=== PATIENT | male | born 1965 | race Caucasian/White ===

== ENCOUNTER 2017-05-20 05:57 | Inpatient (IN) | payer MEDICARE, OTHER ==
[2017-05-20] VITALS (8 sets, daily range): BP systolic 116–142; BP diastolic 60–79; O2SAT 98
[~2017-05-20] VITALS: Ht 172.7 cm; Wt 92.1 kg
[~2017-05-20 05:57] MED LIST: /QUET25TA PO; ABIL1TAB11 PO; BUPIVACAINE LIPOSOME/PF 1.3% 20 ML VIAL (13.3MG/ML)(EXPAREL) As Ordered ONE; CIAL5TAB PO; CIPR-250 PO; CLON1TAB OR; CLON1TAB PO; EFFE150C PO; EFFE75CA75 PO; FERR325T3 PO; FLEC1.3D TD; GABA-282 PO; HORI1TAB4 PO; HYDR-3363 PO; HYDR12CA PO; LISI10TA4 PO; LISI30TA4 PO; LYRI150C PO; MELA3TAB49 PO; METF500T13 PO; MINI2CAP OR; MOBI15TA PO; OMEP40CA2 PO; PERC5TAB8 PO; PERC7.5T11 PO; PRAZ2CAP PO; PRIL40CA OR; PROZ40CA OR; RITA10TA PO; SIMV10TA2 OR; SIMV10TA2 PO; TRANEXAMIC ACID 100 MG/ML 10ML VIAL As Ordered ONE; TRAZ-136 PO; TRAZ50TA2 PO; VENL75CA PO; VITA500T PO; ceFAZolin 1GM INJ (J0690) As Ordered ONE; melatonin PO
[2017-05-20] MEDS ORDERED: TRANEXAMIC ACID INJection 1,000 MG in D5W 100 ML IV ONE (06:00)
[2017-05-20] MEDS ORDERED: LR 1,000 ML IV SCH ×2 (06:15→11:00)
[2017-05-20] MEDS ORDERED: MIDAZOLAM INJ 2 MG/2 ML VIAL (J2250) As Ordered ONE ×2 (06:56→08:13)
[2017-05-20] MEDS ORDERED: fentaNYL 100 MCG/2 ML INJECTION (J3010) As Ordered ONE ×3 (06:56→10:15)
[2017-05-20] MEDS ORDERED: MIDAZOLAM INJ 2 MG/2 ML VIAL (J2250) IV ONE (08:00)
[2017-05-20] MEDS ORDERED: fentaNYL 100 MCG/2 ML INJECTION (J3010) IV ONE (08:00)
[2017-05-20] MEDS ORDERED: LIDOCAINE 2% INJ 100 MG/5 ML SDV (FOR ANES.) As Ordered ONE (08:13)
[2017-05-20] MEDS ORDERED: PROPOFOL 200 MG/20 ML VIAL As Ordered ONE ×3 (08:13→10:00)
--- NOTE | 2017-05-20 08:18 | REP ---
PA and lateral chest: Comparison is 06/09/2014. The lung oliver are clear. The cardiac size is normal The tracy, mediastinum, and bony thorax are unremarkable. Impression: Negative PA and lateral chest. Cervical spine stabilization plate is again identified, unchanged. There is no interval change. Otherwise . Signed by Tonny Garcia MD 05/20/2017 08:10 A
[2017-05-20] MEDS ORDERED: ROPIvacaine 0.5% 30 ML INJECTION (J2795) ONE (08:59)
[2017-05-20] MEDS ORDERED: LIDOCAINE 1% MDV 20ML VIAL ONE (08:59)
[2017-05-20] MEDS ORDERED: dexameTHASONE 10 MG/1 ML VIAL PRES.FREE (J1100) ONE (08:59)
[2017-05-20] MEDS ORDERED: fentaNYL 100 MCG/2 ML INJECTION (J3010) IV PRN (11:00)
[2017-05-20] MEDS ORDERED: METOCLOPRAMIDE INJ 10MG/2ML VIAL (J2765) IV PRN (11:00)
[2017-05-20] MEDS ORDERED: ONDANSETRON 4MG/2ML VIAL (J2405) IV PRN ×2 (11:00→11:15)
[2017-05-20] MEDS ORDERED: MEPERIDINE INJ 25 MG/ML VIAL (J2175) IV PRN (11:00)
[2017-05-20] MEDS ORDERED: PERCOCET 5MG/325MG TAB PO PRN (11:00)
[2017-05-20] MEDS ORDERED: ACETAMINOPHEN TAB 650MG DOSE (2X325MG) PO PRN (11:15)
[2017-05-20] MEDS ORDERED: DEXTROSE 50% 50 ML SYRINGE IV PRN (11:15)
[2017-05-20] MEDS ORDERED: FLEET ENEMA PR PRN (11:15)
[2017-05-20] MEDS ORDERED: oxyCODONE 5MG TAB PO PRN (11:15)
[2017-05-20] MEDS ORDERED: GLUCAGON FOR INJ 1 MG VIAL (J1610) SC PRN (11:15)
[2017-05-20] MEDS ORDERED: GLUCOSE 4 GM CHEW TABLET PO PRN (11:15)
[2017-05-20] MEDS: HumaLOG INSULIN (NovoLOG) PER UNIT SC SCH ×2 (12:00→17:46)
[2017-05-20] MEDS: oxyCODONE 5MG TAB PO PRN ×2 (15:30→21:30)
[2017-05-20] MEDS: ceFAZolin SOD 1 GM in D5W MINI-BAG PLUS 50 ML IV SCH (15:31)
--- NOTE | 2017-05-20 15:41 | REP ---
HISTORY: Postoperative. AP and lateral portable views of the left knee show a total knee prosthetic device in place, the femoral and tibial components of which are well seated and well approximated. There is an anchor device in the form of a cancellus screw seen in the distal femur and only on the lateral view. IMPRESSION: Postoperative changes as described above. Signed by Bobby Caruso DO 05/20/2017 03:47 P
[2017-05-20] MEDS: DOCUSATE SODIUM 100 MG CAP PO SCH (17:47)
[2017-05-20] MEDS: CelecoXIB (CeleBREX) 100 MG CAP PO SCH (20:28)
[2017-05-20] MEDS: KETOROLAC 30 MG/ML VIAL (J1885) IV SCH (20:29)
[2017-05-21] VITALS: BP 128/62
[2017-05-21] MEDS: ceFAZolin SOD 1 GM in D5W MINI-BAG PLUS 50 ML IV SCH (00:11)
[2017-05-21 02:00] VITALS: BP 111/57
[2017-05-21] MEDS: oxyCODONE 5MG TAB PO PRN ×4 (03:43→23:08)
[2017-05-21] MEDS: KETOROLAC 30 MG/ML VIAL (J1885) IV SCH ×3 (05:45→21:24)
[2017-05-21 06:00] VITALS: BP 121/66
[2017-05-21] MEDS ORDERED: ACETAMINOPHEN 325 MG TAB PO ONE ×2 (06:45)
[2017-05-21] MEDS ORDERED: PERCOCET 5MG/325MG TAB PO PRN (06:45)
--- NOTE | 2017-05-21 06:56 | IPNPDOC ---
Date Seen The patient was seen on 05/21/17. Progress Note SUBJECTIVE: Patient is a 51 y/o male POD1 s/p L total knee arthroplasty. Patient seen and examined at bedside. No acute overnight events. Pain well controlled. Ambulated to bathroom yesterday. OBJECTIVE PHYSICAL EXAMINATION: VITAL SIGNS: Please see below. GENERAL: Well nourished, NAD HEENT: Normocephalic, atraumatic CARDIOVASCULAR: 2+ DP, PT pulses, BCR all digits LLE. RESPIRATORY: Non labored breathing. EXTREMITIES: LLE dressing in place, c/d/i. Able to flex/exten NEUROLOGICAL: sensation/motor intact in femoral, tibial, sural, sapheous, SPN, DPN distributions. LABORATORY DATA: Please see below. MICROBIOLOGY: Please see below. IMAGING: Post op knee radiographs demonstrate well fixed total knee arthroplasty components DVT prophylaxis ordered?: Paul Wilson ASSESSMENT: This is a 51 y/o male POD1 s/p L TKA, doing well PLAN: 1. WBAT LLE 2. PT for ambulation 3. LVX for DVT prophylaxis 4. restart home meds 5. Will take down dressing tomorrow VS, I&O, 24H, Fishbone Vital Signs/I&O Vital Signs Date Time Temp Pulse Resp B/P (MAP) Pulse Ox O2 Delivery O2 Flow Rate FiO2 05/21/17 04:13 15 05/21/17 02:00 98.6 96 111/57 (75) 95 Nasal Cannula 2.0 Laboratory Data 24H LABS Laboratory Tests 2 05/20/17 06:59: Bedside Glucose (Misc Panel) 127H 05/20/17 16:33: Bedside Glucose (Misc Panel) 148H 05/21/17 00:14: Bedside Glucose (Misc Panel) 199H 05/21/17 05:48: Bedside Glucose (Misc Panel) 151H BELLA HEIN MD May 21, 2017 06:56
[2017-05-21] MEDS: HumaLOG INSULIN (NovoLOG) PER UNIT SC SCH ×3 (07:30→17:52)
[2017-05-21] MEDS ORDERED: LIDOCAINE 1% MDV 20ML VIAL ONE (07:49)
[2017-05-21] MEDS ORDERED: ROPIvacaine 0.5% 30 ML INJECTION (J2795) ONE (07:49)
[2017-05-21] MEDS ORDERED: dexameTHASONE 10 MG/1 ML VIAL PRES.FREE (J1100) ONE (07:49)
[2017-05-21] MEDS ORDERED: ceFAZolin SOD 1 GM in D5W MINI-BAG PLUS 50 ML IV SCH (08:00)
[2017-05-21 08:33] LABS: MEAN CORPUSCULAR HGB CONC 33.3 g/dl (32.0-36.5); RED CELL DISTRIBUTION WIDTH 14.8 % (11.5-14.5); WHITE BLOOD COUNT 13.6 10^3/uL (4.0-10.0)
--- NOTE | 2017-05-21 08:52 | RO ---
DATE OF PROCEDURE: 05/20/2017 PREPROCEDURE DIAGNOSIS: Left knee osteoarthritis. POSTPROCEDURE DIAGNOSIS: Left knee osteoarthritis. PROCEDURE PERFORMED: Left total knee arthroplasty. 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 TOTAL TOURNIQUET TIME: 109 minutes at 250 mmHg, left thigh. ANTIBIOTICS: 2 gram Ancef given within one hour of incision. IMPLANTS USED: DePuy Sigma PFC, cruciate retaining femur size 5, size 4 fixed bearing tibia with 10 mm polyethylene and 38 mm patellar component. ESTIMATED BLOOD LOSS: 150 mL. COMPLICATIONS: None. MATERIALS SENT TO LAB: None. INDICATION FOR PROCEDURE: Peter Mcbride is a 51-year-old male with long-standing left knee pain. The patient had a history of left knee anterior cruciate ligament (ACL) reconstruction performed over 30 years ago. He also had a recent knee arthroscopy about 1 year ago where he was found to have significant tricompartmental arthritis. The patient had radiographs that were consistent with tricompartmental arthritis. He went through nonsurgical management for osteoarthritis of the knee to include activity modification, pain medication, exercise therapy, and injections. After all of those treatments failed, we discussed surgical management, to include total knee arthroplasty. The risks, benefits, indications, and alternatives were discussed and the patient elected to proceed and provided informed consent for left total knee arthroplasty. INTRAOPERATIVE FINDINGS: The knee was stable and well balanced after fixation. The tibial screw for the previous ACL reconstruction had to be removed. The femoral screw was retained. DESCRIPTION OF PROCEDURE: The patient was positively identified in the preop holding area where the surgical was marked. He was then given a single shot adductor canal nerve block by the anesthesia service for postoperative pain control. He was then brought to the operating room where he was given single shot spinal anesthesia for intraoperative pain control. He was also given 1 gram of IV Tranexamic acid, along with his antibiotics preoperatively. SCD was placed on the non operative extremity for DVT prophylaxis. The patient was prepped and draped in the usual sterile fashion. A final time-out was performed. I made a 15 cm incision utilizing his previous bone patellar tendon bone ACL reconstruction incision just medial to the midline patella and tibial tubercle. I dissected through skin and subcutaneous tissue and identified the VMO, quadriceps tendon and medial retinaculum. I raised a flap medially. I then performed a medial parapatellar arthrotomy, dissecting through the retinaculum and synovium. I then performed a medial release using a combination of Bovie and curved osteotome. After completion of medial release, I then resected a portion of scarred anterior interval tissue that was preventing eversion of the patella. Given the patient's previous surgical history and extensive scarring, I elected to perform the patellar resection first in order for ease of retraction. The patellar measured to thickness of 27 mm, I resected approximately 10 mm of patella and sized to a 38 mm component, which would correspond to 9 mm polyethylene thickness to avoid overstuffing the patella. After the patellar resection was completed, I was then able to retract and flex the knee for preparation of the femoral canal. A rongeur was used to identify the starting point for introduction of the intramedullary femoral guide. The intramedullary drill was introduced into the femoral canal. This was then followed by placement of the intramedullary distal femur cutting guide. The cutting block was placed using pins and then performed a 10 mm 5 degree valgus distal femur cut in the standard fashion. After this was completed, I then placed the posterior referencing femoral sizing guide. The femur was sized to a 5 cruciate retaining. After this was completed, I then placed the 4-in-1 femoral cutting block, confirming adequate external rotation and that there would not be any notching anteriorly. I then performed the anterior, posterior and chamfer cuts for the femur and removed all bony debris. Osteophytes were removed from the femur, both medially and laterally at this time. After removal of osteophytes and completion of the femoral cuts, I then turned attention to the tibial cut, the ACL was resected. The tibia was brought forward. The PCL was recessed. The screw for the tibia and tibial ACL reconstruction was exposed and removed without difficulty. After the screw was removed, I then placed extramedullary tibial guide onto the tibia. I measured a 4 mm resection from the medial side. I then pinned the cutting block for the tibia. Retractors were placed to protect the collateral ligaments and popliteal tendon. A PCL retractor was placed to protect posterior structures. The tibial resection was completed and an osteotome was used to remove the finish the cut, followed by a rongeur to smooth the edges and remove osteophytes from the tibial side. After the tibial cut was completed, I then sequentially removed the medial and lateral menisci, followed by removal of osteophytes from the posterior condyles, medially and laterally. At this point, I also injected about 10 mL of a mixture of 20 mL of Exparel and mixed in 40 mL of saline into the posterior capsule for postoperative pain control. After this was completed, I then placed the tibian and femoral trial components and set the rotation for the tibia. The tibia component was set to be in line with the junction of the medial and middle third of the tibial tubercle. The tibia was then sized to a size 4. I placed a sizing block and checked flexion and extension gaps which were noted to be well balanced. Using a 10 mm polyethylene, the patient was able to obtain full knee flexion and extension in the operating room. After checking flexion and extension gaps, the patellar, femoral and tibial trials were all implanted and noted to be excellent patellar tracking with no hands technique. After all sizes were confirmed, the knee was thoroughly irrigated with normal saline. After the knee was thoroughly irrigated to remove blood components from the cancellus bone, the final components were then implanted and noted to be well fixed with excellent balance in both flexion and extension and full range of motion. After final implants were implanted, additional 2 mg of topical TXA was placed into the wound. I also injected the remainder of the Exparel mixture into the capsule, to include the retinaculum and then patellar fat pad for postoperative pain control. This was followed by letting down the tourniquet at 109 minutes. Hemostasis was obtained using Bovie electrocautery. The wound was then closed in layers with some simple interrupted 0-Vicryl sutures for retinacular layer, followed by running barbed suture for the retinacular layer, the subcutaneous layer was closed with interrupted #2-0 Vicryl suture and the skin was closed with Monocryl and Prineo Dermabond dressing was applied for the skin. Sterile dressings were then applied . This ended the procedure. I was present and scrubbed in for all critical portions of the case. POSTOPERATIVE PLAN: The patient will be weightbearing as tolerated. He will resume his preoperative medications and will undergo physical therapy (PT) for total knee protocol. X-rays will be obtained in the postanesthesia care unit. He will be admitted to the hospital frey for post op therapy and pain control and discharged when criteria met. ELYSSA
[2017-05-21 09:06] LABS: INR 1.06
[2017-05-21] MEDS: ENOXAPARIN 40 MG/0.4 ML SYRINGE (J1650) SC SCH (09:19)
[2017-05-21] MEDS: VENLAFAXINE **XR** 75MG CAPSULE PO SCH (09:19)
[2017-05-21] MEDS: METHYLPHENIDATE 5 MG TAB PO SCH ×2 (09:20→21:32)
[2017-05-21] MEDS: OMEPRAZOLE 20 MG CAP PO SCH (09:20)
[2017-05-21] MEDS: hydroCHLOROthiazide 12.5 MG CAPSULE PO SCH (09:20)
[2017-05-21] MEDS: LISINOPRIL 10 MG TAB PO SCH (09:20)
[2017-05-21] MEDS: clonazePAM 1 MG TAB PO SCH (09:21)
[2017-05-21] MEDS: GABAPENTIN 300 MG CAP PO SCH ×2 (09:21→21:33)
[2017-05-21] MEDS: CelecoXIB (CeleBREX) 100 MG CAP PO SCH ×2 (09:21→21:31)
[2017-05-21] MEDS: DOCUSATE SODIUM 100 MG CAP PO SCH (09:21)
[2017-05-21 10:00] VITALS: BP 141/69
[2017-05-21 14:00] VITALS: BP 129/73
[2017-05-21] MEDS ORDERED: traZODone 100 MG TAB PO SCH (21:00)
[2017-05-21] MEDS ORDERED: SIMVASTATIN 10 MG TAB PO SCH (21:00)
[2017-05-21] MEDS ORDERED: PRAZOSIN 1 MG CAP PO SCH (21:00)
[2017-05-21 22:00] VITALS: BP 129/84
[2017-05-21] MEDS ORDERED: MORPHINE 4 MG/ML 1ML SYRINGE IV ONE (22:00)
[2017-05-22] MEDS: KETOROLAC 30 MG/ML VIAL (J1885) IV SCH (05:32)
[2017-05-22 06:00] VITALS: BP 126/55
--- NOTE | 2017-05-22 06:20 | IPNPDOC ---
Date Seen The patient was seen on 05/22/17. Progress Note SUBJECTIVE: Patient is a 51 y/o male POD2 s/p L total knee arthroplasty. Patient seen and examined at bedside. No acute overnight events. Pain well controlled. Ambulated to bathroom yesterday. OBJECTIVE PHYSICAL EXAMINATION: VITAL SIGNS: Please see below. GENERAL: Well nourished, NAD HEENT: Normocephalic, atraumatic CARDIOVASCULAR: 2+ DP, PT pulses, BCR all digits LLE. RESPIRATORY: Non labored breathing. EXTREMITIES: LLE dressing taken down. Wound c/d/i. Knee ROM 0-45 degrees. No knee effusion. NEUROLOGICAL: sensation/motor intact in femoral, tibial, sural, sapheous, SPN, DPN distributions. LABORATORY DATA: Please see below. MICROBIOLOGY: Please see below. IMAGING: Post op knee radiographs demonstrate well fixed total knee arthroplasty components DVT prophylaxis ordered?: Paul Wilson ASSESSMENT: This is a 51 y/o male POD2 s/p L TKA, doing well PLAN: 1. WBAT LLE 2. PT for ambulation 3. LVX for DVT prophylaxis- will do teaching of home administration today 4. continue home meds 5. Discharge home after PT today VS, I&O, 24H, Fishbone Vital Signs/I&O Vital Signs Date Time Temp Pulse Resp B/P (MAP) Pulse Ox O2 Delivery O2 Flow Rate FiO2 05/21/17 23:38 16 05/21/17 22:00 97.9 73 129/84 (99) 96 Room Air 05/21/17 02:00 2.0 Laboratory Data 24H LABS Laboratory Tests 2 05/21/17 07:54: Prothrombin Time 13.9, Prothromb Time International Ratio 1.06 05/21/17 12:27: Bedside Glucose (Misc Panel) 97 05/21/17 17:24: Bedside Glucose (Misc Panel) 170H 05/21/17 21:43: Bedside Glucose (Misc Panel) 131H CBC/BMP Laboratory Tests 05/21/17 07:54 Red Blood Count 3.43 L, Mean Corpuscular Volume 84.0, Mean Corpuscular Hemoglobin 28.0, Mean Corpuscular Hemoglobin Concent 33.3, Red Cell Distribution Width 14.8 H BELLA HEIN MD May 22, 2017 06:20
[2017-05-22] MEDS: oxyCODONE 5MG TAB PO PRN (06:38)
[2017-05-22] MEDS: METHYLPHENIDATE 5 MG TAB PO SCH (09:36)
[2017-05-22] MEDS: HumaLOG INSULIN (NovoLOG) PER UNIT SC SCH (09:36)
[2017-05-22 09:37] VITALS: BP 123/77
[2017-05-22] MEDS: LISINOPRIL 10 MG TAB PO SCH (09:37)
[2017-05-22] MEDS: clonazePAM 1 MG TAB PO SCH (09:37)
[2017-05-22] MEDS: VENLAFAXINE **XR** 75MG CAPSULE PO SCH (09:37)
[2017-05-22] MEDS: DOCUSATE SODIUM 100 MG CAP PO SCH (09:37)
[2017-05-22] MEDS: hydroCHLOROthiazide 12.5 MG CAPSULE PO SCH (09:37)
[2017-05-22] MEDS: GABAPENTIN 300 MG CAP PO SCH (09:37)
[2017-05-22] MEDS: CelecoXIB (CeleBREX) 100 MG CAP PO SCH (09:38)
[2017-05-22] MEDS: OMEPRAZOLE 20 MG CAP PO SCH (09:38)
[2017-05-22] MEDS: ENOXAPARIN 40 MG/0.4 ML SYRINGE (J1650) SC SCH (09:38)
[2017-05-23] MEDS ORDERED: INFLUENZA QUADRIVALENT PF VACCINE 0.5ML SYRINGE (90686) IM ONE (09:00)
--- NOTE | 2017-05-24 14:00 | DS.PDOC ---
Discharge Summary General Date of Admission May 20, 2017 at 05:57 Date of Discharge 05/22/2017 Discharge Summary PROCEDURES PERFORMED DURING STAY: Left total knee arthroplasty 05/20/2017. ADMITTING DIAGNOSES: 1. Left knee osteoarthritis DISCHARGE DIAGNOSES: 1. Left knee osteoarthritis COMPLICATIONS/CHIEF COMPLAINT: Left Knee Osteoarthritis. HISTORY OF PRESENT ILLNESS: Patient is a 51 year old male with long standing left knee osteoarthritis admitted for left total knee arthroplasty. HOSPITAL COURSE: Patient underwent uneventful above procedure on the day of admission. He was admitted to the hospital floor for post op pain control and, physical therapy. ON the day of discharge, he was ambulating with a walker, pain was controlled, he was tolerating PO intake, voiding spontaneously, and had demonstrated proficiency in self administration of lovenox. DISCHARGE MEDICATIONS: Please see below. ALLERGIES: Please see below. PHYSICAL EXAMINATION ON DISCHARGE: VITAL SIGNS: Please see below. GENERAL: No acute distress CARDIOVASCULAR EXAMINATION: 2+ DP/PT pulses LLE RESPIRATORY EXAMINATION: Non labored breathing EXTREMITIES: L knee wound well healed, clean, dry, intact. Knee ROM 0-50 degrees LABORATORY DATA: Please see below. IMAGING: Post op radiographs demonstrate well fixed total knee arthroplasty components PROGNOSIS: Good ACTIVITY: As tolerated. DIET: Regular. DISCHARGE PLAN: Discharge to home DISPOSITION: 01 Home, Self-Care. DISCHARGE CONDITION: Stable. Vital Signs/I&Os Vital Signs Date Time Temp Pulse Resp B/P (MAP) Pulse Ox O2 Delivery O2 Flow Rate FiO2 05/22/17 10:08 Room Air 05/22/17 09:37 123/77 05/22/17 07:08 15 05/22/17 06:00 97.9 74 96 05/21/17 02:00 2.0 Discharge Medications Scheduled Aripiprazole (Abilify) 5 Mg Tab, 5 MG PO DAILY, (Reported) Ascorbic Acid (Vitamin C) 500 Mg Tab, 500 MG PO BID, (Reported) Clonazepam (Clonazepam) 1 Mg Tab, 1 MG PO DAILY, (Reported) Ferrous Sulfate (Ferrous Sulfate) 325 Mg Tab, 325 MG PO BID, (Reported) Gabapentin (Gabapentin) 300 Mg Cap, 300 MG PO BID, (Reported) Hydrochlorothiazide (Hydrochlorothiazide) 12.5 Mg Cap, 12.5 MG PO DAILY, ( Reported) Lisinopril (Lisinopril) 30 Mg Tab, 30 MG PO DAILY, (Reported) Metformin Hydrochloride (Metformin HCl) 500 Mg Tab, 1,000 MG PO BID, (Reported) Methylphenidate HCl (Ritalin) 10 Mg Tab, 20 MG PO BID, (Reported) Omeprazole (Omeprazole) 40 Mg Cap, 40 MG PO DAILY, (Reported) Prazosin Hcl (Prazosin HCl) 2 Mg Cap, 4 MG PO QHS, (Reported) Simvastatin (Simvastatin) 10 Mg Tab, 20 MG PO QHS, (Reported) Tadalafil (Cialis) 5 Mg Tab, 5 MG PO DAILY, (Reported) Trazodone HCl (Trazodone HCl) 100 Mg Tab, 100 MG PO QHS, (Reported) Venlafaxine Hydrochloride (Effexor Xr) 150 Mg Cap, 300 MG PO DAILY, (Reported) Allergies Coded Allergies: Pregabalin (Verified Adverse Reaction, Severe, SWELLING OF FEET AND ANKLES , 03/23/14) BELLA HEIN MD May 24, 2017 14:00
== END 2017-05-22 11:25 | disposition home or self-care (01) | DRG 470 ==
LOC: M OR 05:57 → M MS5PR 15:00
PROVIDERS: ADMIT Orthopaedic Surgery; ATTEND Orthopaedic Surgery
PROC: 0SRD0J9 Replacement of Left Knee Joint with Synthetic Substitute, Cemented, Open Approach (ICD-10-PCS; principal; 2017-05-20 07:30)
DX: M17.12 Unilateral primary osteoarthritis, left knee (principal); Z79.899 Other long term (current) drug therapy; Z88.8 Allergy status to other drugs, medicaments and biological substances